=== PATIENT | male | born 1935 | race Caucasian/White ===

== ENCOUNTER 2019-06-16 09:10 | Day surgery (SDC) | payer MEDICARE ==
[~2019-06-16 09:10] MED LIST: AMLO10 PO; BENAML20/5 PO; Benazepril HCl20 MG PO; CHOL10002 PO; CYAN1000I IM; INSDET100 SQ; INSR10I SC; INSUASPI SC; SOTO80 PO
--- NOTE | 2019-06-16 11:05 | NUR ---
INTO STEP FROM IMAGING RECIEVED REPORT FROM PJ. PATIENT VSS BANDAID INTACT CLEAN DRY O SWELLING
--- NOTE | 2019-06-16 11:55 | NUR ---
ASSUMED CARE OF PT. PT DENIES PAIN. BANDAID D/I. NO SWELLING OR BRUISING NOTED.
--- NOTE | 2019-06-16 12:20 | NUR ---
MARK BACK TO [place] [facility] RN.
--- NOTE | 2019-06-16 13:01 | NUR ---
discharged with all belongings and discharge instructions
== END 2019-06-16 22:53 | disposition home or self-care (01) ==
LOC: CT 09:10
PROVIDERS: Radiology Diagnostic Radiology
PROC: 0FB23ZX Excision of Left Lobe Liver, Percutaneous Approach, Diagnostic (ICD-10-PCS; principal; 2019-06-16 11:00)
DX: C22.9 Malignant neoplasm of liver, not specified as primary or secondary (principal); Z88.1 Allergy status to other antibiotic agents
CPT/HCPCS: 47000; 77012; 88307; 88313; 88341; 88342

== ENCOUNTER 2019-07-17 18:38 | Observation (INO) | payer MEDICARE ==
[~2019-07-17] VITALS: Ht 175.3 cm; Wt 83.7 kg
[2019-07-17 19:18] LABS: BASOPHILS ABSOLUTE AUTO 0.01 K/mm3 (0.00-0.23); BASOPHILS PERCENT AUTO 0 % (0-2); EOSINOPHILS ABSOLUTE AUTO 0.03 K/mm3 (0.00-0.68); EOSINOPHILS PERCENT AUTO 0 % (0-6); Hematocrit 39.1 % (37.0-53.0); IMMATURE GRAN ABSOLUTE AUTO 0.05 K/mm3 (0.00-0.10); IMMATURE GRAN PERCENT AUTO 1 % (0-1); LYMPHOCYTES ABSOLUTE AUTO 0.75 K/mm3 (0.84-5.20); LYMPHOCYTES PERCENT AUTO 8 % (21-46); MONOCYTES ABSOLUTE AUTO 0.65 K/mm3 (0.16-1.47); MONOCYTES PERCENT AUTO 7 % (4-13); Mean Corpuscular HGB 32.5 pg (26.0-34.0); Mean Corpuscular HGB Conc 35.8 g/dL (31.5-36.5); Mean Corpuscular Volume 91 fL (80-100); NEUTROPHILS ABSOLUTE AUTO 8.22 K/mm3 (1.96-9.15); NEUTROPHILS PERCENT AUTO 85 % (41-73); Platelet Count 212 K/mm3 (150-400); RDW Coefficient Variation 17.5 % (11.7-14.2); RDW Standard Deviation 58.7 fL (35.1-46.3); Red Blood Cell Count 4.31 M/mm3 (4.30-5.90); White Blood Cell Count 9.71 K/mm3 (4.00-11.30)
[2019-07-17 20:07] LABS: Alanine Aminotransfer (ALT/SGP 193 U/L (12-78); Albumin, Blood 1.9 g/dL (3.4-5.0); Anion Gap 6 mmol/L (6-16); Aspartate Aminotrans (AST/SGOT 396 U/L (12-37); Blood Urea Nitrogen 27 mg/dL (8-24); Bun/Creatinine Ratio 24.3 (12.0-20.0); CO2, Blood 26 mmol/L (21-32); Calcium, Blood 9.2 mg/dL (8.5-10.1); Chloride, Blood 88 mmol/L (98-108); Creatinine, Blood 1.11 mg/dL (0.60-1.20); Glomerular Filtration Rate >60 (60-); Glucose, Blood 133 mg/dL (70-99); Potassium, Blood 5.2 mmol/L (3.5-5.5); Sodium, Blood 120 mmol/L (136-145)
[2019-07-17 20:37] LABS: Albumin/Globulin Ratio 0.4 (0.8-1.8); Alk Phos 1100 U/L (50-136); Bilirubin, Total 30.9 mg/dL (0.1-1.0); Globulin, Blood 4.7 g/dL (2.2-4.0)
[2019-07-17 20:38] LABS: Total Protein, Blood 6.6 g/dL (6.4-8.2)
[2019-07-17] MEDS ORDERED: Ondansetron Odt8 MG PO (21:44)
--- NOTE | 2019-07-18 00:57 | NUR ---
PT RESTING COMFORTABLY AT THIS TIME. HE DENIES PAIN OR NAUSEA, AND STATES HE DOES NOT NEED ANYTHING FOR PAIN. PT REFUSED LOVENOX, AND IV FLUIDS.
--- NOTE | 2019-07-18 04:18 | NUR ---
SHIFT SUMMARY PT ER ADMIT THIS SHIFT. 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 PT HAS RECEIVED NO TREATMENT. PT STATES THAT HE HAS BECOME INCREASINGLY WEAK OVER THE PAST FEW WEEKS AND IT HAS BEEN DIFFICULT FOR HIS FAMILY TO CARE FOR HIM. HE ALSO REPORTS A LOST OF APPETITE WITH A 30+ LB WEIGHT LOSS AND NAUSEA AFTER EATING. HE HAS NOT TAKEN ANY OF HIS MEDICATIONS FOR SEVERAL DAYS, AND STATES HE DOES NOT WANT TO TAKE HIS MEDICATION ANYMORE, AND JUST WANTS TO GO. PLAN AT THIS POINT GOING FORWARD HIS HOSPICE. PT SEVERELY JAUNDICED T/O. HE DENIES PAIN OR NAUSEA FOR ME, AND HAS DECLINED TO BE REPOSITONED WHEN ASK AND DOES NOT WANT ANYTHING FOR PAIN. PT IS PLESANT, A/OX4. PRODUCTIVE COUGH. RESP E/U ON RA. AUTER AT BEDSIDE. COMFORT ASSESSED T/O SHIFT. WILL CONTINUE TO MONITOR AND REPORT TO ONCOMING RN.
--- NOTE | 2019-07-18 11:30 | NUR ---
[facility] INITIAL CONSULT: REFERRAL RECEIVED FOR END OF LIFE/COMFORT CARE AND NEW DIAGNOSIS IN MAY OF HEPATOCELLULAR CANCER. PT ALSO WANTS TO DISCUSS PHYSICIAN ASSISTED SUICIDE. HE EXPRESSED THAT HE WANTED TO BE ADMITTED TO THE HOSPITAL TO HAVE MEDICAL ASSISTANCE WITH DYING MILENA. EMR REVIEWED AND CASE CONFERENCED WITH AND RN PRIOR TO VISIT. GRAND HILL, TURNER, WANTED TO SPEAK TO ME OUTSIDE OF ROOM BEFORE VISIT. SHE LIVES IN THE HOME WITH HER GRANDDAD, GRANDMA, MOTHER. HER MOM, RICHMOND IS DON'S MEDICAL POA FOR HEALTHCARE. TURNER IS VISIBLY UPSET, ANXIOUS AND VERY DRAMATIC. SHE WANTS ME TO "TELL HIM" HE HAS TO GO TO [facility] AND BE CARED FOR THERE. SHE HAS BEEN THE PRIMARY CG AT HOME BUT HAS HELP FROM PT'S TWO DAUGHTERS AND . HE WAS INDEPENDENT UNTIL RECENTLY, WHEN HE BECAME TOO WEAK TO WALK/STAND AT TIMES. TURNER STATES THAT HER GRANDAD IS AFRAID OF TAKING NARCOTICS AND DECLINES MEDICATIONS FOR COMFORT. SHE REPORTS HE HAS BEEN RELUCTANT TO ALLOW PERSONAL CARE FROM FAMILY MEMBERS. ALL OF ABOVE DISCUSSED WITH DON IN GREAT DETAIL. WE TALKED OPTIONS OF LONGTERM, FOSTER HOME AND HIS OWN HOME WITH HOSPICE SERVICES SUPPORTING EITHER CARE PROVIDERS OR HIS FAMILY. HE IS CLEAR AND ADAMENT THAT HE DESIRES D/C HOME. WE DISCUSSED PAS, THE PROCESS, THAT PAS IS NOT AVAILABLE IN THE HOSPITAL AND/OR [facility] EMPLOYESS ARE NOT ALLOWED TO PARTICIPATE IN PAS. EXPLAINED THAT THE APPLICATION FOR EVAL FOR PAS CAN BE LENGTHY AND WHAT STEPS AND CRITERIA MUST BE MET. DISCUSSED S/S MANAGEMENT AND HIS NEED FOR COMFORT MEDICATIONS AT THIS TIME. PT HAD VIOLENT NIGHTMARES AFTER BEING GIVEN SOME NARCOTIC RELATED TO MORPHINE 20 YEARS AGO. OPTIONS INSTEAD OF MORPHINE DISCUSSED WITH HIM AND . MEDICATIONS FOR NAUSEA, ANXIETY, PAIN DISCUSSED WITH PT. HE IS AGREES TO REPORT S/S, PAIN AND ACCEPT MEDICATIONS FOR COMFORT. HE AGREES AND STATES HE WILL ACCEPT MORE HELP WITH PERSONAL CARE AT HOME FROM HIS FAMILY AND HOSPICE CARE PROVIDERS. PT'S GRAND DAUGHTER RUSHED OUT OF ROOM MULTIPLE TIMES. SHE TOLD PT SHE WOULD NOT CARE FOR HIM AT HOME AND ATTEMPTED TO COERCE PT TO GOING TO [place]. PT WAS FIRM AND BOTH DAUGHTERS AND I VERBALLY SUPPORTED HIS RIGHT TO CHOOSE GOING HOME WITH HOSPICE AND MULTIPLE FAMILY MEMBERS WHO ARE WILLING TO PROVIDE CARE. HE WILL NEED A HOSPITAL BED AND BSC. , RN AND EXTRUSION PRESS OPERATOR ALL INCLUDED IN PLANS FOR D/C HOME WITH [facility], USE OF NON MORPHINE NARCOTICS AND TESTING OF MEDICATIONS THAT WILL WORK FOR PT TODAY, DME NEEDS AND FAMILY TO CONTACT TO ARRANGE IS [facility] FRAGOSO AND [facility] FOR HEALTHCARE. ALSO SPOKE TO RAMANDEEP HILL BY PHONE WHO IS IN AGREEMENT WITH ALL OF THE ABOVE. PT VERY SATISFIED WITH PLANS IN PLACE AND APPRECIATIVE OF THE CONVERSATION AND VISIT. PLANNED WITH HIM TO CHECK IN ON HIM LATER TODAY TO SEE HOW S/S ARE MANAGED WITH NEW MEDICAITONS. PT IS SEVERELY JAUNDICED HE DENIES PAIN WHEN ASKED INITIALLY BUT UPON EXAMINATION IS WINCING AND GRUNTING WITH ANY PALPATION OF RIGHT UPPER AND LOWER ABDOMEN. HE APPEARS TO HAVE LARGE DISTENDED, MAYBE FLUID FILLED ABDOMEN. PT REPORTS "THAT'S JUST MY BIG BELLY". THIS IS MY FIRST ASSESSMENT SO NO COMPARISON AVAILABALE. PT WITH FURROWED BROW, APPEARS CALM BUT DISTRESSED. HE SPOKE OF BEING A BURDEN TO HIS FAMILY AND DOES NOT WANT TO INCURE ADDITIONAL FINANCIAL BURDEN TO THEM BY GOING TO [place]. HOSPICE BENEFITS EXPLAINED. RICHMOND HILL ASKED THAT I CONVEY TO HIM THAT IT IS HER PRIVILIDGE TO CARE FOR HIM AT HOME, WHICH I DID.
--- NOTE | 2019-07-18 12:27 | NUR ---
PT STATUS GAVE ORAL PAIN MEDICATION ONE HOUR AGO. PT IS SLEEPING NOW. FACE IS CLEAR AND RELAXED (NO WINCES OR OTHER NON-VERBAL S/SX OF PAIN).
--- NOTE | 2019-07-18 14:36 | NUR ---
[facility] COMFORT VISIT. PT IS SLEEPY BUT EASILY AROUSABLE. HE REPORTS INCREASED COMFORT AND NO UNPLEASANT SE FROM PAIN MEDICATION AT THIS TIME. NO FAMILY IN THE ROOM CURRENTLY. I ASKED ABOUT HIS DOOR AND BLINDS THEY WERE BOTH CLOSED AND THE ROOM VERY DARK. HE PREFERS THE DOOR AND BLINDS OPEN, WHICH I DID FOR HIM. ASSISTED PT WITH SIPPING WATER AND FRESH WATER BROUGHT TO HIM. CONGESTED COUGH NOTED. PT DID NOT WANT ANY OF HIS LUNCH TRAY AND STATES HE HAS NO APPETITE. PT DRIFTS TO SLEEP WHEN UNDISTURBED. WILL SEE IN AM BEFORE DC HOME WITH HOSPICE.
--- NOTE | 2019-07-18 15:37 | NUR ---
[facility] initial note: No family present at time of visit. Mr. Haddad apeared to be comfortably sleeping. He did not awaken to voice. Prayer for pt and family provided at bedside. I will remain available.
--- NOTE | 2019-07-18 18:38 | NUR ---
SHIFT SUMMARY PT TO IN HOME ON HOSPICE. PT AGREED TO ORAL PAIN MEDICATION TWICE TODAY. HE SLEPT THROUGHOUT THE REST OF THE DAY. HE IS ALERT AND ORIENTED. CALLS APPROPRIATELY. STILL APPEARS JAUNDICED. HE REFUSED LUNCH, ATE ONLY 3 BITES OF FOOD FOR DINNER.
--- NOTE | 2019-07-19 07:41 | NUR ---
07/19/19 0630 TURNED Q 2 HOURS AND BRIEFS CHANGED AFTER INCONTINENT OF SMALL AMT OF URINE. SMALL STAGE 2 ULCER ON BUTTOCKS. MEPILEX DRESSING SET-UP TO BE APPLIED TODAY. DENIES ANY S/S OR DISCOMFORT.
--- NOTE | 2019-07-19 08:30 | NUR ---
[facility] COMFORT CARE VISIT. PT ATTEMPTING TO USE URINIAL IN BED UPON ENTERING ROOM. ASSISTED PT WITH COMPLETING VOID AND EMPTIED/WASHED URINAL OF 150 ML DK ORANGE URINE. PT HAD SOILED GOWN AND BEDDING TRYING TO USE URINAL. CLEANED PT UP AND DISCUSSED WITH MACHINE REBUILDER, WHO WAS HEADED IN SOON FOR BED BATH AND LINEN CHANGE. PT REPORTS HE DOESN'T NEED BED BATH. SPOKE TO HIM ABOUT KEEPING HIM CLEAN AND DRY A COMFORT MEASURE AND TO PROTECT HIS SKIN. WASHED HIS FACE AND HANDS WITH WARM SOAPY WATER AND RINSE WITH HIS CONSENT. PT STATES HE IS NOT IN PAIN. HE REMAINS SEVERLY JAUNDICED. HE IS MORE WEAK. LIZ HAD BEEN EARLY PER TRAVIS AND ASSISTED HIM WITH EATING BREAKFAST/25%. INQUIRED OF PT IF ANY UNPLEASANT SE NOTED OR EXPERIENCED WITH MEDICATION GIVEN AND HE STATES NO. SPOKE WITH [facility], WHO HAS ARRANGED DELIVERY OF DME FOR 11 AM TODAY AND WILL ARRANGE GURNEY TRANSPORT HOME FOR PT. [facility] WILL REMAIN AVAILABLE FOR S/S MANANGEMENT AND COMFORT CARE.
[2019-07-19] MEDS ORDERED: ATROPINE SULFATE2 ML SL (10:03)
[2019-07-19] MEDS ORDERED: BISA5EC PO (10:04)
[2019-07-19] MEDS ORDERED: LORA1 PO (10:05)
[2019-07-19] MEDS ORDERED: OXYC1L SL (10:06)
[2019-07-19] MEDS ORDERED: PROM25S PR (10:07)
[2019-07-19] MEDS ORDERED: SENN187 PO (10:08)
[2019-07-19] MEDS ORDERED: Transderm-Scop1 EACH TD (10:08)
[2019-07-19] MEDS ORDERED: PROM25 PO (10:08)
--- NOTE | 2019-07-19 13:17 | NUR ---
SHIFT SUMMARY PT RESTING QUIETLY, FOWLERS, DURING SHIFT REPORT. VERY SOFT SPOKEN, MINIMAL CONVERSATION. PT TO ER WITH C/O WEAKNESS, N/V, AND POOR APPETITE; ADMITTED FOR HEPATOCARCINOMA. PT IS VERY, VERY JAUNDICE. TO BE D/C'D ON HOSPICE. SOCK FOLDER NOTIFIED DR LAKE FOR D/C ORDERS. MEDS FAXED TO [facility], PER PT REQUEST. HOSPICE ARRANGEMENTS MADE AND SET UP TO BE READY AT NOON TODAY. BED BATH GIVEN PRIOR TO D/C. IV SITE TO [facility] HERE TO TAKE PT HOME @ 11:53. PT HAD CALLED A COUPLE OF TIMES, WANTING TO GO HOME SOONER. TRANSPORT CALLED TO SAY THEY WERE RUNNING LATER THAN EXPECTED. SLIDE TX TO [facility]. PT DENIED PAIN AND NAUSEA. HAD ASKED FOR ZOFRAN AT BREAKFAST, BUT THEN DECLINED IT, SAYING THAT HE ONLY TOOK IT AT LUNCH AND DINNER. D/C PAPERS AND HARD COPIES OF RX SENT HOME WITH PT. NO S/SX OF DISTRESS NOTED OR REPORTED THIS SHIFT OR AT D/C.
== END 2019-07-19 11:53 | disposition hospice, home (50) ==
LOC: ER 18:38 → MEDS 18:39 → ENPENDDIS 07-19 09:00 → MEDS 07-19 11:53
PROVIDERS: Emergency Medicine; ADMIT Hospitalist
DX: R11.2 Nausea with vomiting, unspecified (principal); K59.00 Constipation, unspecified; C22.0 Liver cell carcinoma; E87.1 Hypo-osmolality and hyponatremia; I48.2 Chronic atrial fibrillation; E11.9 Type 2 diabetes mellitus without complications; I25.10 Atherosclerotic heart disease of native coronary artery without angina pectoris; Z95.1 Presence of aortocoronary bypass graft; Z88.8 Allergy status to other drugs, medicaments and biological substances
CPT/HCPCS: 36415; 80053; 82140; 83690; 85025; 96374; 96376; 99285; G0378; J2405